=== PATIENT | male | born 1990 | race Caucasian/White ===

== ENCOUNTER 2021-11-17 13:41 | Emergency (ER) | payer BC, SELFPAY ==
[2021-11-17 13:42] VITALS: BP 127/73; PULSE 121; RESP 20; TEMP 37.4; O2SAT 98; BMI 32.5
[2021-11-17 14:13] LABS: Mucous, Urine 0 SEEN /hpf (<or=2+)
--- NOTE | 2021-11-17 14:14 | EKG12_ITS ---
Test Reason : ABDOMINAL PAIN Blood Pressure : / mmHG Vent. Rate : 118 BPM Atrial Rate : 118 BPM P-R Int : 156 ms QRS Dur : 092 ms QT Int : 308 ms P-R-T Axes : 046 001 005 degrees QTc Int : 431 ms Sinus tachycardia Otherwise normal ECG Confirmed by RASHIDA ROBERTSON, CHANCE ([id number]), health editor FILI FISCHER ([id number]) on 11/18/2021 10:39:59 A M Referred By: ENRIQUE/PIEDAD/ATUL Confirmed By:BHUPENDRA FIELD MD
[2021-11-17 14:16] LABS: Color, Urine Yellow (Yellow); Glucose, Dipstick Normal (Normal); Ketone-Dipstick 5 mg/dl (Negative); Leukocyte Esterase-Dipstick 25 /ul (Negative); Nitrite-Dipstick Negative (Negative); Occult Blood-Urine 10 /ul (Negative); Protein-Dipstick 30 mg/dl (Negative); Urine Bilirubin Dipstick Negative (Negative); Urine Clarity Sl. Cloudy (Clear); Urine Urobilinogen Normal (Normal)
--- NOTE | 2021-11-17 14:20 | CT_ITS ---
STUDY: CT ABDOMEN AND PELVIS WITH CONTRAST REASON FOR EXAM: Male, 31 years old. LLQ pain RADIATION DOSAGE (If Supplied By Facility): CTDIvol = ( 11.23 ) mGy, DLP = ( 839.99 ) mGycm TECHNIQUE: Transaxial images were obtained from the dome of the diaphragm to the symphysis pubis without oral contrast. IV 100mL Isovue-300 was administered. Sagittal and coronal images were reconstructed. Individualized dose optimization techniques were used for this CT. COMPARISON: None. FINDINGS: The visualized lung bases are unremarkable. The visualized portions of the heart are within normal limits. Normal liver. Normal gallbladder and extrahepatic biliary system. Normal spleen. Normal pancreas. Normal bilateral adrenal glands. Normal right kidney. Normal left kidney. Normal visualized stomach. Normal small intestine. Mild diverticulosis of the colon. There is wall thickening and inflammation of the sigmoid colon compatible with diverticulitis. The appendix is visualized and appears normal. Normal abdominal aorta. Normal inferior vena cava. Normal retroperitoneum. Normal urinary bladder. Normal abdominal wall. Normal osseous structures. CT/Abdomen/Pelvis W IV Cont ONLY IMPRESSION: Sigmoid diverticulitis. Electronically Signed: Soy Gaines DO at 16:47 EST Reading Location ID and State: [facility] / [place] Tel [phone], Service support ,
--- NOTE | 2021-11-17 14:22 | NURSING ---
NO OLD EKGS
[2021-11-17 14:28] LABS: Bacteria 1+ /hpf (None Seen); Red Blood Cells-Urine 0-5 SEEN /hpf (0-5); Squamous Epithelial Cells - UA 0-5 SEEN /hpf (0-5); White Blood Cells 0-5 SEEN /hpf (0-5)
--- NOTE | 2021-11-17 14:31 | RAD_ITS ---
STUDY: X-RAY CHEST REASON FOR EXAM: Male, 31 years old. 3 day history of fever and abdominal pain. TECHNIQUE: Single AP portable view of the chest. COMPARISON: None. FINDINGS: The lungs are clear and expanded. There is no demonstrated pleural abnormality. Normal size heart. Normal mediastinum and oj. Normal visualized pulmonary arteries. Normal visualized aortic arch and descending thoracic aorta. Normal visualized thoracic spine. Normal visualized ribs, clavicles, and shoulders. There is no demonstrated abnormality of the visualized soft tissue structures of the upper abdomen. RAD/Chest 1 View (Portable) IMPRESSION: Normal x-ray examination of the chest. Electronically Signed: Elver Cuevas MD at 14:52 EST ,
--- NOTE | 2021-11-17 14:41 | EDS_ITS ---
HPI HPI - GI History of Present Illness Chief Complaint: Abd Pain Narrative Narrative: 31-year-old male presenting with left lower quadrant abdominal pain. He states he has been experiencing this as well as dysuria, urinary frequency for the last couple of days. Patient is in a monogamous relationship. He does have unprotected sex. He also admits to anal sex with his female partner. Patient said she feels generally unwell. He states his pain is 5/5 in the left lower quadrant. Went to urgent care today and was noted to have a fever of 101.4. He took Tylenol for this. He still feels nauseous. He denies any history of kidney stones. He does not have any flank pain. Patient does not have urethral discharge. PFSH PFS Medical History Anxiety and depression Gastroesophageal reflux disease GERD (gastroesophageal reflux disease) Sleep apnea Home Medications amoxicillin-pot clavulanate 1 tab PO BID #20 tab 11/17/21 [Rx Last Taken Unknown] apixaban [Eliquis] 5 mg PO BID 11/17/21 [History Last Taken Unknown] diltiazem HCl 30 mg PO BID 11/17/21 [History Last Taken Unknown] fluoxetine 40 mg PO QHS 11/17/21 [History Last Taken Unknown] ondansetron HCl 4 mg PO Q8H #14 tab 11/17/21 [Rx Last Taken Unknown] Allergy/AdvReac Type Severity Reaction Status Date / Time No Known Allergies Allergy Verified 11/17/21 13:43 Family History Father No problems noted. Surgical History No pertinent past surgical history Social History Smoking Status: Current every day smoker tobacco type: e-cigarettes ROS ROS ED Constitutional Constitutional ED: Reports chills and fever(s) ENT ENT ED: Denies rhinorrhea Cardiovascular Cardiovascular: Denies chest pain or palpitations Respiratory/Chest Respiratory/Chest: Denies cough, dyspnea or sputum Gastrointestinal Gastrointestinal: Reports abdominal pain, nausea and vomiting; Denies con stipation or diarrhea Genitourinary Genitourinary ED: Reports dysuria, hematuria and urinary frequency Musculoskeletal Musculoskeletal: Denies arthralgias, back pain or myalgias Integumentary Denies Abrasions or rash Neurologic Neurologic: Reports headache(s); Denies paresthesias or weakness EXAM Physical Exam Const Vital Signs: 11/17/21 13:42 11/17/21 14:54 11/17/21 14:56 Temperature 99.3 F H 103.0 F H 103.0 F H Temperature Source Temporal Oral Oral Pulse Rate 121 H 107 H Respiratory Rate 20 H 20 H Blood Pressure 127/73 H 123/68 H Blood Pressure Mean 91 86 Pulse Ox 98 100 99 Oxygen Delivery Method Room Air Room Air Room Air 11/17/21 17:39 11/17/21 18:41 Temperature 100.8 F H Temperature Source Oral Pulse Rate 90 Respiratory Rate 19 H Blood Pressure 119/77 110/64 Blood Pressure Mean 91 Pulse Ox 98 Oxygen Delivery Method Room Air Positive well nourished General Appearance ED: NAD; Negative for pallor HEENT normocephalic and atraumatic Eyes PERRL and EOMs intact bilaterally General Eye ED: Negative for pale conjunctiva or scleral icterus Resp normal respiratory effort and clear to auscultation bilaterally Cardio regular rhythm Rate: tachycardic Back/Spine no CVA tenderness Neuro CN's II-XII intact bilaterally Sensorium / Orientation: alert, oriented to person, oriented to place and oriented to time Psych mental status grossly normal Skin General Skin Exam: Negative for jaundice or pallor Lesions: no lesions Rashes: no rashes MDM MDM MDM Narrative Medical decision making narrative: Patient presenting febrile and tachycardic. His temperature was 103. Given his abnormal vital signs sepsis work-up was obtained. Patient was given morphine 4 mg IV with Zofran 4 mg IV. He is given 2 L of IV fluids. CBC showed a leukocytosis of 15.1 with a slight left shift. Hemoglobin hematocrit are stable. Lactic acid within normal limits. Urinalysis negative for infection. There is some urine ketones and small blood. Patient was sent for culture. EKG is performed on my interpretation is shows sinus tachycardia with a ventricular rate of 118 beats minute without sign of ischemic change or dysrhythmia. Chest x-ray on my interpretation is no acute cardiopulmonary process. Patient's high-sensitivity troponin is less than 3. PT/INR normal. GC and Chlamydia are normal. Obtained a CT of the abdomen p rachael with IV contrast which shows sigmoid diverticulitis without complication. Patient was given a dose of Zosyn in the ER while his IV fluid running and he feels improved. His heart rate is now in the 70s. We discussed admission versus discharge and he felt comfortable going home with Augmentin. I will give him some Zofran as well. He declines analgesia. He is given return precautions. Impression: 1. Dysuria unknown cause 2. Abdominal pain 3. Acute sigmoid diverticulitis 4. Febrile illness Lab Data Attestation: I reviewed the patient's lab results. Labs: Laboratory Results - last 24 hr 11/17/21 11/17/21 11/17/21 14:08 14:08 14:08 WBC RBC Hgb Hct MCV MCH MCHC RDW Std Deviation RDW Coeff of Shahab Plt Count MPV Immature Gran % (Auto) Neut % (Auto) Lymph % (Auto) [place] % (Auto) Eos % (Auto) Baso % (Auto) Absolute Neuts (auto) Absolute Lymphs (auto) Nucleated RBC % Differential Comment PT INR APTT Sodium Potassium Chloride Carbon Dioxide Anion Gap BUN Creatinine Estim Creat Clear Calc Est GFR (MDRD) Af Amer Est GFR (MDRD) Non-Af BUN/Creatinine Ratio Glucose Lactic Acid Calcium Total Bilirubin AST ALT Alkaline Phosphatase Troponin I High Sens Total Protein Albumin Globulin Albumin/Globulin Ratio Urine Color Yellow Urine Clarity Sl. Cloudy Urine pH 6.0 Ur Specific [place] 1.010 Urine Protein 30 H Urine Glucose (UA) Normal Urine Ketones 5 H Urine Occult Blood 10 H Urine Nitrite Negative Urine Bilirubin Negative Urine Urobilinogen Normal Ur Leukocyte Esterase 25 H Urine RBC 0-5 SEEN Urine WBC 0-5 SEEN Ur Squamous Epith Cells 0-5 SEEN Urine Bacteria 1+ Urine Mucus 0 SEEN Chlamydia DNA (RAYA) Cancelled Chlam trachomat DNA PCR Negative N.gonorrhoeae DNA (PCR) Negative N.gonorrhoeae DNA (RAYA) Cancelled 11/17/21 11/17/21 11/17/21 14:52 14:52 14:52 WBC 15.1 H RBC 5.04 Hgb 14.3 Hct 42.6 MCV 84.5 MCH 28.4 MCHC 33.6 RDW Std Deviation 39.8 RDW Coeff of Shahab 12.9 Plt Count 284 MPV 9.3 Immature Gran % (Auto) 0.300 Neut % (Auto) 90.6 H Lymph % (Auto) 3.2 L [place] % (Auto) 5.8 Eos % (Auto) 0.0 Baso % (Auto) 0.1 Absolute Neuts (auto) 13.7 H Absolute Lymphs (auto) 0.49 L Nucleated RBC % 0 Differential Comment SCANNED PT 14.1 INR 1.2 APTT 41.0 H Sodium 136 Potassium 3.4 L Chloride 101 Carbon Dioxide 28.0 Anion Gap 7 BUN 11 Creatinine 1.02 Estim Creat Clear Calc 105.90 Est GFR (MDRD) Af Amer 110 Est GFR (MDRD) Non-Af 91 BUN/Creatinine Ratio 10.8 Glucose 101 Lactic Acid Calcium 9.4 Total Bilirubin 1.00 AST 10 L ALT 24 Alkaline Phosphatase 65 Troponin I High Sens < 3 L Total Protein 8.3 H Albumin 3.7 Globulin 4.6 H Albumin/Globulin Ratio 0.8 L Urine Color Urine Clarity Urine pH Ur Specific [place] Urine Protein Urine Glucose (UA) Urine Ketones Urine Occult Blood Urine Nitrite Urine Bilirubin Urine Urobilinogen Ur Leukocyte Esterase Urine RBC Urine WBC Ur Squamous Epith Cells Urine Bacteria Urine Mucus Chlamydia DNA (RAYA) Chlam trachomat DNA PCR N.gonorrhoeae DNA (PCR) N.gonorrhoeae DNA (RAYA) 11/17/21 14:52 WBC RBC Hgb Hct MCV MCH MCHC RDW Std Deviation RDW Coeff of Shahab Plt Count MPV Immature Gran % (Auto) Neut % (Auto) Lymph % (Auto) [place] % (Auto) Eos % (Auto) Baso % (Auto) Absolute Neuts (auto) Absolute Lymphs (auto) Nucleated RBC % Differential Comment PT INR APTT Sodium Potassium Chloride Carbon Dioxide Anion Gap BUN Creatinine Estim Creat Clear Calc Est GFR (MDRD) Af Amer Est GFR (MDRD) Non-Af BUN/Creatinine Ratio Glucose Lactic Acid 1.6 Calcium Total Bilirubin AST ALT Alkaline Phosphatase Troponin I High Sens Total Protein Albumin Globulin Albumin/Globulin Ratio Urine Color Urine Clarity Urine pH Ur Specific [place] Urine Protein Urine Glucose (UA) Urine Ketones Urine Occult Blood Urine Nitrite Urine Bilirubin Urine Urobilinogen Ur Leukocyte Esterase Urine RBC Urine WBC Ur Squamous Epith Cells Urine Bacteria Urine Mucus Chlamydia DNA (RAYA) Chlam trachomat DNA PCR N.gonorrhoeae DNA (PCR) N.gonorrhoeae DNA (RAYA) Radiography Diagnostic Testing: Clinical Impression(s) from Imaging Studies Abdomen/Pelvis CT 11/17/21 14:20 IMPRESSION: Sigmoid diverticulitis. Electronically Signed: Soy Gaines DO at 16:47 EST , Chest X-Ray 11/17/21 14:31 IMPRESSION: Normal x-ray examination of the chest. Electronically Signed: Elver Cuevas MD at 14:52 EST , Discharge Plan Triage Chief Complaint: Abd Pain ED Provider: Maikel Brown Dx/Rx/DC Orders Instructions: ED Diverticulitis, ED Dysuria, Uncertain Cause (Adult) Prescriptions: New amoxicillin-pot clavulanate 875-125 mg tablet 1 tab PO BID Qty: 20 RF: 0 ondansetron HCl 4 mg tablet 4 mg PO Q8H Qty: 14 RF: 0 No Action fluoxetine 40 mg capsule 40 mg PO QHS RF: 0 diltiazem HCl 30 mg tablet 30 mg PO BID RF: 0 Eliquis 5 mg tablet 5 mg PO BID RF: 0 Primary Care Provider: Raheem Borja Referrals: Daron Piper DO [STAFF PHYSICIAN] - As soon as possible Raheem Borja MD [Primary Care Provider] - Disposition Disposition: Home, Self Care Discharge Date/Time: 11/17/21 18:45
[2021-11-17 14:54] VITALS: TEMP 39.4; O2SAT 100
[2021-11-17 14:56] VITALS: BP 123/68; PULSE 107; RESP 20; TEMP 39.4; O2SAT 99
[2021-11-17] MEDS: 0.9% Normal Saline 1,000 ML 999 ML IV ×3 (14:56→17:36)
[2021-11-17] MEDS: Morphine 4 MG/ML Syringe IV (15:05)
[2021-11-17] MEDS: Ondansetron 4 MG/2 ML Vial IV (15:05)
[2021-11-17 15:10] LABS: Absolute Lymphocyte Count 0.49 X10^3/uL (0.83-4.51); Absolute Neutrophil Count 13.7 X10^3/uL (2.0-7.7); Basophil# 0.02 X10^3/uL; Basophil% 0.1 % (0-1); Hematocrit 42.6 % (40-54); Hemoglobin 14.3 g/dL (13.0-16.5); Lymphocyte # 0.49 X10^3/ul (0.83-4.51); Lymphocyte % 3.2 % (19-41); Mean Corp Hgb Conc 33.6 g/dL (32-36); Mean Corpuscular Hgb 28.4 pg (27.0-32.0); Mean Corpuscular Volume 84.5 fL (80-94); Mean Platelet Vol. 9.3 fl (6.2-12.0); Monocyte# 0.87 X10^3/uL; Monocyte% 5.8 % (0-10); NRBC Flagged by Analyzer 0 % (0-5); Neutrophil # 13.66 X10^3/uL (2.7-7.7); Neutrophil % 90.6 % (47-70); POSITIVE DIFFERENTIAL YES; Platelet Count 284 K/mm3 (150-450); RBC Distribution Width CV 12.9 % (11.6-14.6); RBC Distribution Width SD 39.8 fl (35.1-43.9); Red Blood Count 5.04 M/mm3 (4.6-6.2); White Blood Count 15.1 K/mm3 (4.4-11.0)
[2021-11-17 15:11] LABS: Differential Indicated SCAN CRITERIA MET
[2021-11-17] MEDS: Ketorolac 15 MG/ML Vial IV (15:14)
[2021-11-17 15:21] LABS: Prothrombin Time (Protime)PT. 14.1 SECONDS (11.7-14.9)
[2021-11-17 15:22] LABS: International Normalized Ratio 1.2
[2021-11-17 15:29] LABS: ALB/GLOB Ratio 0.8 RATIO (0.9-2.4); AST(SGOT) 10 U/L (15-37); Alanine Aminotransfer ALT/SGPT 24 U/L (16-61); Albumin, Serum 3.7 g/dL (3.2-5.0); Alkaline Phosphatase 65 U/L (45-117); Anion Gap 7 (5-15); BUN 11 mg/dL (7-18); BUN/Creat Ratio 10.8 RATIO (10-20); Calcium,Total 9.4 mg/dL (8.5-10.1); Chloride 101 mmol/L (98-107); Creatinine, Serum 1.02 mg/dL (0.70-1.30); EST Glomerular Filtration Rate 91 mL/min (>60); Est Glom Filt Rate - Afr Amer 110 mL/min (>60); Globulin 4.6 g/dL (2.2-4.2); Glucose 101 mg/dL (74-106); Potassium 3.4 mmol/L (3.5-5.1); Protein, Total 8.3 g/dL (6.4-8.2); Sodium Level 136 mmol/L (136-145); Troponin-I HS < 3 pg/mL (3.0-78.0)
[2021-11-17 15:50] LABS: Lactic Acid 1.6 mmol/L (0.4-1.9)
[2021-11-17 15:59] LABS: Differential Comment SCANNED
[2021-11-17 17:39] VITALS: BP 100/57; BP 119/77; PULSE 87; PULSE 90; RESP 19; RESP 23; TEMP 38.2; O2SAT 98; O2SAT 99
[2021-11-17 18:41] VITALS: BP 110/64
[2021-11-17 19:52] LABS: Chlamydia Trachomatis by PCR Negative (Negative); Neisserai gonorrhoeae by PCR Negative (Negative); Probe Check PASS; Sample Adequacy Control PASS; Specimen Processing Control PASS
== END 2021-11-17 18:45 | disposition home or self-care (01) ==
PROVIDERS: Emergency Provider Student in an Organized Health Care Education/Training Program; PCP Family Medicine; Visit Provider Student in an Organized Health Care Education/Training Program
DX: R30.0 Dysuria (principal); K57.32 Diverticulitis of large intestine without perforation or abscess without bleeding; R10.9 Unspecified abdominal pain; R50.9 Fever, unspecified; F17.210 Nicotine dependence, cigarettes, uncomplicated; K21.9 Gastro-esophageal reflux disease without esophagitis; G47.30 Sleep apnea, unspecified; F41.9 Anxiety disorder, unspecified; F32.A Depression, unspecified
CPT/HCPCS: 71045; 74177; 80053; 81001; 83605; 84484; 85025; 85610; 85730; 87040; 87086; 87088; 87426; 87491; 87591; 93005; 96361; 96365; 96375; 99285; J7030; Q9967; A4216; J2405